=== PATIENT | female | born 1960 | race Caucasian/White ===

== ENCOUNTER → 2024-07-03 07:29 | Outpatient (REF) | payer BC, SELFPAY | LOC: WDC 07:29 | PROVIDERS: ATTENDING PHYSICIAN Physician Assistant | DX: Z12.31 Encounter for screening mammogram for malignant neoplasm of breast (principal) | CPT/HCPCS: 77063; 77067 ==

== ENCOUNTER → 2025-07-16 13:17 | Outpatient (REF) | payer BC, SELFPAY | LOC: WDC 13:17 | PROVIDERS: ATTENDING PHYSICIAN Physician Assistant | DX: Z12.31 Encounter for screening mammogram for malignant neoplasm of breast (principal) | CPT/HCPCS: 77063; 77067 ==